=== PATIENT | male | born 1970 | race Caucasian/White ===

== ENCOUNTER 2020-08-06 16:45 | Inpatient (IN) | payer OTHER ==
[~2020-08-06] VITALS: Ht 177.8 cm; Wt 77.1 kg
[2020-08-06 17:16] LABS: BASOPHIL % 0.8 % (0.2-1.5); PLATELET COUNT 176 x10^3mcL (152-348)
[2020-08-06 17:20] LABS: RED CELL DISTRIBUTION WIDTH 15.4 % (12.1-16.2)
[2020-08-06 17:31] LABS: CALCIUM 8.9 mg/dL (8.5-10.1); CARBON DIOXIDE 26.5 mmol/L (21-32); CHLORIDE SERUM 104 mmol/L (98-107); CREATININE SERUM 1.2 mg/dL (0.7-1.3); GFR1 > 60 mL/min; GLUCOSE SERUM 163 mg/dL (74-106); POTASSIUM SERUM 3.3 mmol/L (3.5-5.1); SODIUM SERUM 142 mmol/L (136-145)
[2020-08-06 17:41] LABS: ALBUMIN 3.6 g/dL (3.4-5.0); ALKALINE PHOSPHATASE 111 U/L (46-116); ALT/SGPT 52 U/L (16-63); AST/SGOT 67 U/L (15-37); BILIRUBIN TOTAL 0.89 mg/dL (0.20-1.00); TOTAL PROTEIN, SERUM 7.3 g/dL (6.4-8.2)
[2020-08-06] MEDS ORDERED: TRAZODONE100 MG PO (18:52)
[2020-08-06] MEDS ORDERED: DESVENLAFAXINE100 MG PO (18:52)
[2020-08-06] MEDS ORDERED: PRAZOSIN HCL1 MG PO (18:53)
[2020-08-06] MEDS ORDERED: NORVASC5 MG PO (18:53)
[2020-08-06 23:32] VITALS: BP 143/89
[2020-08-07 06:09] VITALS: BP 125/81
[2020-08-07 08:10] VITALS: BP 125/83
[2020-08-07 08:28] LABS: AMPHETAMINE QUAL UR NONE DETECTED (See below)
[2020-08-07 09:20] LABS: ALKALINE PHOSPHATASE 79 U/L (46-116); ALT/SGPT 41 U/L (16-63); AST/SGOT 48 U/L (15-37); BILIRUBIN TOTAL 1.4 mg/dL (0.20-1.00); CARBON DIOXIDE 25.9 mmol/L (21-32); CHLORIDE SERUM 99 mmol/L (98-107); CREATININE SERUM 0.9 mg/dL (0.7-1.3); GFR1 > 60 mL/min; GLUCOSE SERUM 98 mg/dL (74-106); POTASSIUM SERUM 3.1 mmol/L (3.5-5.1); SODIUM SERUM 134 mmol/L (136-145)
[2020-08-07 09:38] LABS: ALBUMIN 2.8 g/dL (3.4-5.0); TOTAL PROTEIN, SERUM 5.9 g/dL (6.4-8.2)
[2020-08-07 11:20] LABS: microscopic required? NO
[2020-08-07 11:38] LABS: urine erythrocyte NEGATIVE (NEGATIVE)
[2020-08-07 12:39] VITALS: BP 124/81
[2020-08-07 16:49] VITALS: BP 141/92
[2020-08-07 21:40] VITALS: BP 133/93
[2020-08-08 05:31] VITALS: BP 142/95
[2020-08-08 06:21] LABS: CALCIUM 8.6 mg/dL (8.5-10.1); CHLORIDE SERUM 102 mmol/L (98-107); CREATININE SERUM 0.8 mg/dL (0.7-1.3); GFR1 > 60 mL/min; GLUCOSE SERUM 84 mg/dL (74-106); MAGNESIUM 1.5 mg/dL (1.8-2.4); PHOSPHOROUS 3.1 mg/dL (2.5-4.9); POTASSIUM SERUM 3.7 mmol/L (3.5-5.1); SODIUM SERUM 136 mmol/L (136-145)
[2020-08-08 07:23] LABS: PLATELET COUNT 174 x10^3mcL (152-348)
[2020-08-08 08:10] LABS: RED CELL DISTRIBUTION WIDTH 15.1 % (12.1-16.2)
[2020-08-08 09:15] VITALS: BP 124/94
[2020-08-08 09:21] VITALS: BP 124/94
[2020-08-08 12:39] VITALS: BP 147/100
[2020-08-08 12:45] VITALS: BP 147/100
[2020-08-08 20:51] VITALS: BP 126/93
[2020-08-09 05:26] VITALS: BP 122/77
[2020-08-09 07:08] LABS: BASOPHIL % 0.8 % (0.2-1.5); PLATELET COUNT 184 x10^3mcL (152-348)
[2020-08-09 07:34] LABS: CALCIUM 8.3 mg/dL (8.5-10.1); CARBON DIOXIDE 27.2 mmol/L (21-32); CHLORIDE SERUM 104 mmol/L (98-107); CREATININE SERUM 0.8 mg/dL (0.7-1.3); GFR1 > 60 mL/min; GLUCOSE SERUM 86 mg/dL (74-106); MAGNESIUM 1.8 mg/dL (1.8-2.4); PHOSPHOROUS 3.9 mg/dL (2.5-4.9); POTASSIUM SERUM 3.2 mmol/L (3.5-5.1); SODIUM SERUM 138 mmol/L (136-145)
[2020-08-09 08:02] LABS: RED CELL DISTRIBUTION WIDTH 15.2 % (12.1-16.2)
[2020-08-09 08:33] VITALS: BP 128/80
[2020-08-09] MEDS ORDERED: ATIVAN1 MG PO (09:12)
[2020-08-09 12:20] VITALS: BP 128/86
[2020-08-09 16:38] VITALS: BP 117/83
[2020-08-09 20:26] VITALS: BP 121/82
[2020-08-10] VITALS (7 sets, daily range): BP systolic 105–127; BP diastolic 68–88
[2020-08-11] VITALS (7 sets, daily range): BP systolic 104–120; BP diastolic 69–85
[2020-08-11 06:38] LABS: BASOPHIL % 0.9 % (0.2-1.5); PLATELET COUNT 238 x10^3mcL (152-348)
[2020-08-11 06:41] LABS: RED CELL DISTRIBUTION WIDTH 15.3 % (12.1-16.2)
[2020-08-11 06:57] LABS: CARBON DIOXIDE 30.1 mmol/L (21-32); CHLORIDE SERUM 105 mmol/L (98-107); GFR1 > 60 mL/min; GLUCOSE SERUM 127 mg/dL (74-106); POTASSIUM SERUM 3.5 mmol/L (3.5-5.1); SODIUM SERUM 137 mmol/L (136-145)
[2020-08-12 00:48] VITALS: BP 110/71
[2020-08-12 05:56] VITALS: BP 102/62
[2020-08-12 06:37] LABS: PLATELET COUNT 281 x10^3mcL (152-348)
[2020-08-12 06:48] LABS: CALCIUM 9.1 mg/dL (8.5-10.1); CARBON DIOXIDE 34.3 mmol/L (21-32); CHLORIDE SERUM 102 mmol/L (98-107); GFR1 > 60 mL/min; GLUCOSE SERUM 93 mg/dL (74-106); SODIUM SERUM 138 mmol/L (136-145)
[2020-08-12 07:14] LABS: RED CELL DISTRIBUTION WIDTH 15.4 % (12.1-16.2)
[2020-08-12 09:17] VITALS: BP 114/80
[2020-08-12 10:23] LABS: MONOCYTE 16 % (0-7); PLATELET MORPHOLOGY PLATELETS NORMAL; SEGMENTED NEUTROPHILS 50 % (37-75); rbc morphology (normal/abnorm) NORMAL (NORMAL)
[2020-08-12 12:31] VITALS: BP 112/76
[2020-08-12 17:21] VITALS: BP 110/70
[2020-08-12 21:25] VITALS: BP 109/72
[2020-08-13 05:21] VITALS: BP 111/74
[2020-08-13 08:47] VITALS: BP 106/72
[2020-08-13 12:43] VITALS: BP 108/65
[2020-08-13 16:55] VITALS: Ht 177.8 cm; Wt 77.1 kg
[2020-08-13] MEDS ORDERED: LIB25 PO (17:07)
[2020-08-13 17:25] VITALS: BP 108/64
[2020-08-13 17:42] VITALS: BP 105/68
== END 2020-08-13 19:08 | DRG 52 ==
LOC: ED 16:45 → DU 18:34
PROVIDERS: Emergency Medicine; ADMIT Internal Medicine; ATTEND Internal Medicine
DX: G92 Toxic encephalopathy (principal); E87.1 Hypo-osmolality and hyponatremia; Z20.822 Contact with and (suspected) exposure to COVID-19; E87.6 Hypokalemia; F10.239 Alcohol dependence with withdrawal, unspecified; R73.9 Hyperglycemia, unspecified; I10 Essential (primary) hypertension; Z79.899 Other long term (current) drug therapy; Z79.891 Long term (current) use of opiate analgesic
CPT/HCPCS: 82962; 97110-GP; 97116-GP; G0378; J2060; J3475; J7030